=== PATIENT | male | born 1970 | race Caucasian/White ===

== ENCOUNTER 2016-12-30 08:13 | Emergency (ER) | payer OTHER, BC ==
[~2016-12-30] VITALS: Ht 177.8 cm; Wt 93.2 kg
[~2016-12-30 08:13] MED LIST: ASPIR 8181 M1 PO; ASPIRIN325 MG PO; ATIVAN1 MG PO; HUMALOG100 UNIT/1 SC; LIPITOR10 MG PO; PERCOCET 5/31 TABLET PO; PHENTERMINE H37.5 MG PO; RAMIPRIL10 MG PO; ZOFRAN ODT4 MG PO
[2016-12-30 09:15] LABS: POINT-OF-CARE METER ID UU14100415
[2016-12-30] MEDS ORDERED: NAPROXEN500 MG PO (10:05)
[2016-12-30 10:37] VITALS: BP 132/91
== END 2016-12-30 10:37 | disposition home or self-care (01) ==
LOC: EME 08:13
PROVIDERS: Physician Assistant
DX: S16.1XXA Strain of muscle, fascia and tendon at neck level, initial encounter (principal); M62.830 Muscle spasm of back; V49.40XA Driver injured in collision with unspecified motor vehicles in traffic accident, initial encounter; Y92.488 Other paved roadways as the place of occurrence of the external cause; R00.2 Palpitations; E10.9 Type 1 diabetes mellitus without complications; Z96.41 Presence of insulin pump (external) (internal); Z79.4 Long term (current) use of insulin; I10 Essential (primary) hypertension; E78.5 Hyperlipidemia, unspecified; Z79.82 Long term (current) use of aspirin
CPT/HCPCS: 72040; 82948; 99281; 99283; J1885